=== PATIENT | female | born 1950 | race Caucasian/White ===

== ENCOUNTER 2022-05-14 17:27 | Outpatient (CLI) | payer OTHER, SELFPAY ==
[2022-05-14 18:12] LABS: Add Urine Culture? No; Bacteria Urine 2+ /hpf; Bilirubin Urine Neg (Negative); Blood Urine Neg (Negative); Glucose Urine UA Norm (Normal); Ketones Urine Negative (Negative); Leukocyte Esterase Urine Trace (Negative); Nitrate Urine Negative (Negative); Protein Urine Neg (Negative); Squamous Epithelial Cell Urine 0-4 /hpf (0-5); Sulfosalicylic Acid Urine Negative (Negative); Urine Appearance SL Hazy (CLEAR); Urine Color Yellow (Yellow); Urobilinogen Urine Norm (Negative); WBC Urine 0-4 /hpf (0-5); pH Urine 8 (5-7)
== END 2022-05-14 17:28 | disposition home or self-care (01) ==
LOC: LAB 17:32
PROVIDERS: Visit Provider Internal Medicine
DX: M62.81 Muscle weakness (generalized) (principal)
CPT/HCPCS: 81001